=== PATIENT | female | born 1985 | race Caucasian/White ===

== ENCOUNTER → 2018-07-03 | Outpatient (REF) | payer OTHER, SELFPAY ==
[2018-07-03 18:41] LABS: BACTERIA, URINE AUTO NEGATIVE (NEGATIVE); RBC, URINE AUTO 3 /HPF (0-3); SQUAMOUS EPITHELIAL CELL UR AU 0 /HPF (0-6); WBC, URINE AUTO 1 /HPF (0-3)
[2018-07-03 22:05] LABS: CHLAMYDIA DNA AMPLIFICATION NEGATIVE (NEGATIVE); GC DNA AMPLIFICATION NEGATIVE (NEGATIVE)
== END ==
LOC: M SMT 17:13
PROVIDERS: ATTEND Specialist
DX: N30.90 Cystitis, unspecified without hematuria (principal)

== ENCOUNTER → 2019-06-29 | Outpatient (REF) | payer BC | LOC: M LAB REF 16:45 | PROVIDERS: ATTEND Family Medicine | DX: N76.0 Acute vaginitis (principal) ==

== ENCOUNTER → 2019-08-05 | Outpatient (CLI) | payer BC ==
[2019-08-05 13:54] LABS: BASO % 0.4 % (0.0-1.0); EOS # 0.2 10^3/uL (0.0-0.5); EOS % 2.1 % (0.0-3.0); HEMATOCRIT 36.6 % (36.0-47.0); HEMOGLOBIN 12.9 g/dl (12.0-15.5); LYMPH # 1.3 10^3/uL (1.5-5.0); LYMPH % 16.6 % (24.0-44.0); MEAN CORPUSCULAR HEMOGLOBIN 32.5 pg (27.0-33.0); MEAN CORPUSCULAR HGB CONC 35.2 g/dl (32.0-36.5); MEAN CORPUSCULAR VOLUME 92.2 fl (80.0-96.0); MONO # 0.5 10^3/uL (0.0-0.8); MONO % 5.6 % (0.0-5.0); NEUTROPHILS % 75.1 % (36.0-66.0); PLATELET COUNT, AUTOMATED 273 10^3/uL (150-450); RED BLOOD COUNT 3.97 10^6/uL (4.00-5.40)
[2019-08-05 14:26] LABS: THYROID STIMULATING HORMONE 0.802 uIU/ML (0.358-3.740)
[2019-08-05 14:38] LABS: RUBELLA IgG QUALITATIVE IMMUNE (IMMUNE)
[2019-08-05 15:07] LABS: HEPATITIS C VIRUS ABY INDEX 0.1 INDEX (<0.8)
[2019-08-05 15:08] LABS: HIV 1&2 SCREEN CENTAUR NEGATIVE (NEGATIVE)
[2019-08-05 15:39] LABS: CHLAMYDIA DNA AMPLIFICATION NEGATIVE (NEGATIVE); GC DNA AMPLIFICATION NEGATIVE (NEGATIVE)
[2019-08-06 08:06] LABS: HSV TYPE I IgG SPECIFIC 1.28 index (0.00-0.90); HSV TYPE II IgG SPECIFIC <0.91 index (0.00-0.90)
== END ==
LOC: M PLALAB 12:10
PROVIDERS: ATTEND Specialist
DX: Z34.01 Encounter for supervision of normal first pregnancy, first trimester (principal)

== ENCOUNTER → 2019-08-07 | Outpatient (CLI) | payer BC | LOC: M LABSMTC 13:51 | PROVIDERS: ATTEND Family Medicine | DX: Z11.59 Encounter for screening for other viral diseases (principal); Z20.828 Contact with and (suspected) exposure to other viral communicable diseases | CPT/HCPCS: 87486; 87581; 87633; 87798; U0002 ==

== ENCOUNTER → 2019-09-28 | Outpatient (CLI) | payer BC ==
--- NOTE | 2019-09-28 20:05 | REP ---
Clinical: Anatomical evaluation. Comparison: None . Findings: Examination demonstrates a single live intrauterine in transverse (head to maternal left) presentation. motion is identified by technologist. Placenta is noted anterior and grade zero without evidence for placenta previa or abruption. Amniotic fluid volume is normal. Cervix measures 3.4 cm in length and appears closed. No evidence for nuchal cord. Gestational age by current measurements 19 weeks 2 days with REGI 02/20/2020 . FHR equals 153 beats per minute. BPD 4.5 cm 19 weeks 5 days HC 16.4 cm 19 weeks 1 day AC 14.4 cm 19 weeks 5 days FL 3.1 cm 19 weeks 4 days HL 2.9 cm 19 weeks 2 days HC/AC ratio 1.14 Estimated weight 303 grams ( 56 percentile). Anatomical assessment demonstrates normal structures including cranium, choroid plexus, cavum, cerebellum/posterior fossa, lungs, diaphragm, stomach, cord insertion/three-vessel cord, kidneys/bladder, spine, and extremities. Limited evaluation of the facial features and heart/ventricular outflow tracts noted. Impression: Single live intrauterine in transverse lie demonstrating appropriate interval growth. Anatomical limitations as noted above may warrant reevaluation and follow-up.
== END ==
LOC: M WHC 09:33
PROVIDERS: ATTEND Specialist
DX: O32.2XX0 Maternal care for transverse and oblique lie, not applicable or unspecified (principal); Z36.89 Encounter for other specified antenatal screening; Z3A.19 19 weeks gestation of pregnancy

== ENCOUNTER → 2019-10-28 | Outpatient (CLI) | payer BC ==
--- NOTE | 2019-10-29 08:22 | REP ---
Clinical: Anatomical evaluation. Comparison: 09/28/2019 . Findings: Examination demonstrates a single live intrauterine in cephalic presentation. motion is identified by technologist. Placenta is noted anterior and grade I without evidence for placenta previa or abruption. Amniotic fluid volume is normal. Cervix measures 3.6 cm the in length and appears closed. No evidence for nuchal cord. Gestational age by LMP 22 weeks 5 days with REGI 02/26/2020 . Gestational age by current measurements 23 weeks 3-day with REGI 02/21/2020 . FHR equals 138 beats per minute. Estimated weight 617 grams ( 45th percentile). Anatomical assessment demonstrates normal structures including cranium, facial features, lungs, four-chamber heart/ventricular outflow tracts, diaphragm, stomach, cord insertion/three-vessel cord, kidneys/bladder. Impression: Single live intrauterine in cephalic presentation demonstrating appropriate interval growth. In conjunction with prior examination, anatomical assessment is complete and normal.
== END ==
LOC: M WHC 08:04
PROVIDERS: ATTEND Obstetrics & Gynecology
DX: O09.512 Supervision of elderly primigravida, second trimester (principal)

== ENCOUNTER → 2019-11-25 | Outpatient (REF) | payer BC ==
[~2019-11-25] MED LIST: IBUP80TA PO; MAPA500T2 PO; PRENTAB9 PO; TUMS500C PO
[2019-11-25 11:41] LABS: HEMATOCRIT 35.7 % (36.0-47.0); HEMOGLOBIN 11.9 g/dl (12.0-15.5); MEAN CORPUSCULAR HEMOGLOBIN 32.8 pg (27.0-33.0); MEAN CORPUSCULAR HGB CONC 33.3 g/dl (32.0-36.5); MEAN CORPUSCULAR VOLUME 98.3 fl (80.0-96.0); PLATELET COUNT, AUTOMATED 244 10^3/uL (150-450); RED BLOOD COUNT 3.63 10^6/uL (4.00-5.40); WHITE BLOOD COUNT 7.6 10^3/uL (4.0-10.0)
== END ==
LOC: M PLALAB 08:23
PROVIDERS: ATTEND Obstetrics & Gynecology
DX: Z36.89 Encounter for other specified antenatal screening (principal); O09.512 Supervision of elderly primigravida, second trimester; Z3A.00 Weeks of gestation of pregnancy not specified

== ENCOUNTER → 2019-12-08 | Outpatient (CLI) | payer BC | LOC: M LAB 06:03 | PROVIDERS: ATTEND Obstetrics & Gynecology | DX: R73.02 Impaired glucose tolerance (oral) (principal) ==

== ENCOUNTER → 2019-12-08 | Outpatient (CLI) | payer SELFPAY | LOC: M LABSMTC 14:25 | PROVIDERS: ATTEND Pediatrics | DX: Z20.828 Contact with and (suspected) exposure to other viral communicable diseases (principal); Z11.59 Encounter for screening for other viral diseases ==

== ENCOUNTER → 2019-12-22 | Outpatient (CLI) | payer BC | LOC: M LAB 08:50 | PROVIDERS: ATTEND Obstetrics & Gynecology | DX: Z34.80 Encounter for supervision of other normal pregnancy, unspecified trimester (principal); Z3A.00 Weeks of gestation of pregnancy not specified ==

== ENCOUNTER → 2020-02-03 | Outpatient (REF) | payer BC | LOC: M SFHCWAGY 13:09 | PROVIDERS: ATTEND Advanced Practice Midwife | DX: O09.513 Supervision of elderly primigravida, third trimester (principal); Z3A.00 Weeks of gestation of pregnancy not specified ==

== ENCOUNTER 2020-02-27 09:46 | Outpatient (CLI) | payer BC ==
[~2020-02-27] VITALS: Ht 167.6 cm; Wt 71.3 kg
[2020-02-27 10:07] VITALS: BP 112/76
--- NOTE | 2020-02-27 10:33 | IPNPDOC ---
Obstetrical Progress Note Date of Service Feb 27, 2020 Subjective c/o contractiosn for 3 days. Some are stronger than others. Small amount of bleeding. Objective 126/74 Assessment Variability: Moderate Accelerations: Positive Decelerations: None Heart Rate Tracing: Category I Tocometer Contractions: Yes Frequency: every 1-3 min. Duration: less than 60 seconds Strength: palpated as mild Sterile Vaginal Examination Dilation: 1cm Effacement (%): 80% Station: -2 Cervical Consistency: Medium Cervical Position: Posterior Postion/Presentation: Cephalic presentation Assessment and Plan Age: 35 : 1 Weeks & Days 40 05/26 Status: Reassuring Additional Comments Not in labor at this time. Plan to send home. labor precautions PORTER SEE MD Feb 27, 2020 10:33
[2020-02-27] MEDS ORDERED: MAPA500T2 PO (11:47)
[2020-02-27] MEDS ORDERED: PRENTAB9 PO (11:47)
[2020-02-27] MEDS ORDERED: TUMS500C PO (11:47)
== END 2020-02-27 10:40 | disposition home or self-care (01) ==
LOC: M LDO 09:46
PROVIDERS: ATTEND Specialist
DX: O47.1 False labor at or after 37 completed weeks of gestation (principal); Z3A.40 40 weeks gestation of pregnancy
CPT/HCPCS: 59025; G0378; G0463

== ENCOUNTER 2020-02-27 17:11 | Inpatient (IN) | payer BC ==
[2020-02-27] VITALS (8 sets, daily range): BP systolic 126–151; BP diastolic 76–83
[~2020-02-27] VITALS: Ht 167.6 cm; Wt 71.6 kg
[~2020-02-27 17:11] MED LIST changes: -IBUP80TA PO
--- NOTE | 2020-02-27 17:58 | HPEPDOC ---
Obstetrical History & Physical General Date of Admission Feb 27, 2020 at 17:42 History of Present Illness 35 yo G1 at 40 1/7 weeks presents with regular contractions of varying intensity for three days. The contractions have increased in intensity today. Small amount of vaginal bleeding. No LOF. 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 Family History Significant Family History: No pertinent family hx Social History Social history Physician at [employer] Marital Status: Single Psychosocial History: No pertinent psych hx * Smoker: non-smoker Alcohol: Denies Drugs: denies Abuse Violence Screening Have you been hit/kicked/slapp: No Have you been sexually assault: No Allergies Coded Allergies: metronidazole (Verified Allergy, Severe, ANAPHYLAXIS, 02/27/20) Sulfa (Sulfonamide Antibiotics) (Verified Allergy, Mild, RASH, 02/27/20) Medications Scheduled No.137/Iron/Folic Acd ( Vitamin Tablet) 1 Each Tablet, 1 TAB PO DAILY Scheduled PRN Acetaminophen (Mapap) 500 Mg Tablet, 1,000 MG PO for PAIN LEVEL 3-5 Calcium Carbonate (Tums) 200 Mg Tab.chew, 500 MG PO for HEARTBURN Physical Examination Physical Examination GENERAL: Alert and oriented times three. BREAST: . ABDOMEN: Gravid and non-tender to touch. FETUS: Is vertex (VTX) by sterile vaginal examination (SVE), fetus is vertex (VTX) by Keith. HEART RATE: Regular rate and rhythm. LUNGS: Clear to auscultation (CTA). EXTREMITIES: No edema. No clonus. Deep tendon reflexes (DTRs) + . Vital Signs/I&O 140/86 Pertinent Laboratoy Data Blood Type: A+ Hepatitis B: Negative Hepatitis C: Negative Rapid Plasma Reagin: Immune Rubella: Nonreactive Varicella: Nonreactive Chlamydia/Gonorrhea: Negative Group B Streptococcus: Negative Vaginal Examination Dilation: 1cm Effacement: 80% Station: -2 Cervical Consistency: Soft Cervical Position: Posterior Presentation: Cephalic presentation Assessment Variability: Moderate Accelerations: Positive Decelerations: None Tocometer Contractions: Yes Frequency: regular, every 1-3 min. Duration: less than 60 seconds Strength: palpated as moderate Assessment/Plan Assessment Pt is a 35-year-old (G)1 para (P)0 at 40 1/7 weeks by first trimester ultrasound and LMP Presents to Labor and Delivery (L&D) in early labor. Plan Admit and orient. Commercial Underwriter and consent. Group B Streptococcus (GBS) [negative]. Labs and intravenous (IV) per unit protocol. Counseled on Pitocin and induction of labor (IOL). Lactated Ringers (LR): Bolus mL, then at mL/hr. Anticipate [normal spontaneous delivery ()]. C-S as appropriate. PORTER SEE MD Feb 27, 2020 17:58
[2020-02-27 18:59] LABS: HEMATOCRIT 40.3 % (36.0-47.0); HEMOGLOBIN 13.8 g/dl (12.0-15.5); MEAN CORPUSCULAR HEMOGLOBIN 32.9 pg (27.0-33.0); MEAN CORPUSCULAR HGB CONC 34.2 g/dl (32.0-36.5); PLATELET COUNT, AUTOMATED 234 10^3/uL (150-450); WHITE BLOOD COUNT 9.3 10^3/uL (4.0-10.0)
[2020-02-27] MEDS ORDERED: LR 1,000 ML IV ONE (19:15)
[2020-02-27] MEDS ORDERED: OXYTOCIN DRIP 30 UNITS in IV 1 EA IV SCH (20:00)
[2020-02-27] MEDS: ONDANSETRON 4MG/2ML VIAL IV PRN (20:31)
[2020-02-27] MEDS ORDERED: ACETAMINOPHEN *IV* 1,000 MG in IV 1 EA IV ONE (20:45)
[2020-02-27] MEDS: LR 1,000 ML IV SCH (21:28)
[2020-02-28] VITALS (47 sets, daily range): BP systolic 88–153; BP diastolic 51–87
[2020-02-28] MEDS ORDERED: BUTORPHANOL 2 MG/ML INJ (J0595) IV ONE (00:15)
[2020-02-28] MEDS ORDERED: PROMETHAZINE INJ 25 MG/ML VIAL (J2550) IV ONE (00:15)
[2020-02-28] MEDS: ONDANSETRON 4MG/2ML VIAL IV PRN ×2 (00:23→04:58)
[2020-02-28] MEDS: LR 1,000 ML IV SCH ×2 (03:46→12:57)
[2020-02-28] MEDS ORDERED: ACETAMINOPHEN *IV* 1,000 MG in IV 1 EA IV ONE (05:00)
[2020-02-28] MEDS ORDERED: FENTANYL 2MCG/ML ROPIVACAINE 0.2% IN 0.9% NACL 100ML IVBAG As Ordered ONE (06:40)
[2020-02-28] MEDS ORDERED: diphenhydrAMINE 50MG/ML VIAL (J1200) IV PRN (07:15)
[2020-02-28] MEDS ORDERED: ePHEDrine SULFATE 25 MG/5 ML(5MG/ML) SYRINGE IV PRN (07:15)
[2020-02-28] MEDS ORDERED: FENTANYL/ROPIVACAINE/NACL BAG 100 ML EPIDURAL SCH (07:15)
[2020-02-28] MEDS ORDERED: LACTATED RINGER'S 1000 ML IV PRN (07:15)
[2020-02-28] MEDS ORDERED: ONDANSETRON 4MG/2ML VIAL IV PRN ×2 (07:15→15:45)
[2020-02-28] MEDS ORDERED: EPIDURAL COMMENT XX SCH (07:15)
[2020-02-28] MEDS ORDERED: EPIDURAL/PCA KEYS XX PRN (07:15)
[2020-02-28] MEDS ORDERED: REFRIGERATOR IV KEYS XX PRN (07:15)
[2020-02-28] MEDS ORDERED: NALOXONE INJ 0.4MG/1ML VIAL (J2310 PER 1MG) IV PRN (07:15)
--- NOTE | 2020-02-28 15:39 | DNPDOC ---
[facility] Delivery Note Delivery Note DATE OF DELIVERY: 02/28/2020 PREDELIVERY DIAGNOSIS: 40-1/7 weeks' gestation and labor. POST DELIVERY DIAGNOSIS: Delivered. PROCEDURE: Spontaneous vaginal delivery AND [employer] IN[employer] TROLLEY: Dr. Porter See MD ANESTHESIA: epidural. ESTIMATED BLOOD LOSS: 300 mL. FINDINGS: 7 pound 10 ounce female , Score 8/9 DELIVERY SUMMARY: Patient is a 35-year-old 1 now para 1 who was admitted to labor and delivery for early labor. She received Pitocin Augmentation. After a 35 minute second stage she had a spontaneous vaginal delivery of a 7 lb. 10 oz female . No nuchal cord. Shoulders delivered with ease. The infant was handed to the mother. The cord was clamped and cut. The placenta delivered spontaneously and appeared intact. The pt received IV Pitocin immediately after delivery of the placenta. A second degree perineal laceration was repaired with 2-O Chromic under local anesthesia in the usual fashion. Sponge and needle counts were correct. PORTER SEE MD Feb 28, 2020 15:39
[2020-02-28] MEDS ORDERED: MEASLES,MUMPS,RUBELLA VACCINE INJ (MMR-II) (90707) SC SCH (15:45)
[2020-02-28] MEDS ORDERED: IBUPROFEN 600MG TAB PO PRN (15:45)
[2020-02-28] MEDS ORDERED: DIBUCAINE 1% OINTMENT 30GM TOP PRN (15:45)
[2020-02-28] MEDS ORDERED: LIDOCAINE 1% MDV 20ML VIAL INFIL ONE (15:45)
[2020-02-28] MEDS ORDERED: ACETAMINOPHEN 500 MG TAB PO PRN (15:45)
[2020-02-28] MEDS ORDERED: DOCUSATE SODIUM 100 MG CAP PO PRN (15:45)
[2020-02-28] MEDS ORDERED: RHOGAM 300 MCG (1500 IU) INJ (J2790) IM SCH (15:45)
[2020-02-28] MEDS ORDERED: METHYLERGONOVINE MALEATE 0.2 MG TAB PO PRN (15:45)
[2020-02-28] MEDS ORDERED: OXYTOCIN DRIP 30 UNITS in IV 1 EA IV ONE (15:45)
[2020-02-28] MEDS ORDERED: ACETAMINOPHEN TAB 650MG DOSE (2X325MG) PO PRN (15:45)
[2020-02-28] MEDS: IBUPROFEN 800 MG TAB PO PRN (16:45)
[2020-02-29] MEDS: IBUPROFEN 800 MG TAB PO PRN (05:17)
[2020-02-29 06:17] VITALS: BP 120/69
[2020-02-29] MEDS ORDERED: DOCUSATE SODIUM 100 MG CAP PO PRN (09:00)
[2020-02-29] MEDS ORDERED: PRENATAL VITAMINS CHEWABLE TABLET PO SCH (09:00)
[2020-02-29] MEDS ORDERED: IBUP80TA PO (13:19)
== END 2020-02-29 18:05 | disposition home or self-care (01) | DRG 560 ==
LOC: M LDO 17:11 → M LDI 17:42 → M OBS 02-28 17:54
PROVIDERS: ADMIT Specialist; ATTEND Specialist
PROC: 10E0XZZ Delivery of Products of Conception, External Approach (ICD-10-PCS; principal; 2020-02-28)
PROC: 0KQM0ZZ Repair Perineum Muscle, Open Approach (ICD-10-PCS; 2020-02-28)
DX: O48.0 Post-term pregnancy (principal); O70.1 Second degree perineal laceration during delivery; Z3A.40 40 weeks gestation of pregnancy; Z37.0 Single live birth

== ENCOUNTER → 2020-05-16 | Outpatient (REF) ==
[~2020-05-16] MED LIST changes: +IBUP80TA PO
[2020-05-16 15:19] LABS: RSV AMPLIFICATION NEGATIVE (NEGATIVE)
== END ==
LOC: M EMP 12:54
PROVIDERS: ATTEND Family Medicine
DX: Z20.828 Contact with and (suspected) exposure to other viral communicable diseases (principal)

== ENCOUNTER → 2021-04-17 | Outpatient (CLI) | payer BC | LOC: M LAB 11:30 | PROVIDERS: ATTEND Physical Medicine & Rehabilitation | DX: Z34.91 Encounter for supervision of normal pregnancy, unspecified, first trimester (principal) ==

== ENCOUNTER → 2021-05-24 | Outpatient (REF) | LOC: M EMP 16:58 | PROVIDERS: ATTEND Family Medicine | DX: Z11.52 Encounter for screening for COVID-19 (principal) ==

== ENCOUNTER → 2021-08-23 | Outpatient (CLI) | payer BC | LOC: M WHC 10:32 | PROVIDERS: ATTEND Specialist | DX: Z36.3 Encounter for antenatal screening for malformations (principal); Z3A.20 20 weeks gestation of pregnancy ==

== ENCOUNTER → 2021-10-04 | Outpatient (REF) | payer BC | LOC: M PLALAB 11:32 | PROVIDERS: ATTEND Specialist | DX: Z34.82 Encounter for supervision of other normal pregnancy, second trimester (principal) ==

== ENCOUNTER → 2021-10-04 | Outpatient (CLI) | payer BC ==
[2021-10-04 17:26] LABS: HEMATOCRIT 38.5 % (36.0-47.0); HEMOGLOBIN 12.9 g/dl (12.0-15.5); MEAN CORPUSCULAR HEMOGLOBIN 31.6 pg (27.0-33.0); MEAN CORPUSCULAR HGB CONC 33.5 g/dl (32.0-36.5); MEAN CORPUSCULAR VOLUME 94.4 fl (80.0-96.0); PLATELET COUNT, AUTOMATED 285 10^3/uL (150-450); RED BLOOD COUNT 4.08 10^6/uL (4.00-5.40); WHITE BLOOD COUNT 8.3 10^3/uL (4.0-10.0)
[2021-10-04 18:57] LABS: GC DNA AMPLIFICATION NEGATIVE (NEGATIVE)
== END ==
LOC: M PLALAB 14:15
PROVIDERS: ATTEND Specialist
DX: Z34.82 Encounter for supervision of other normal pregnancy, second trimester (principal); Z3A.00 Weeks of gestation of pregnancy not specified

== ENCOUNTER → 2021-10-05 | Outpatient (CLI) | payer BC | LOC: M PLALAB 12:07 | PROVIDERS: ATTEND Specialist | DX: Z34.82 Encounter for supervision of other normal pregnancy, second trimester (principal); Z3A.00 Weeks of gestation of pregnancy not specified ==

== ENCOUNTER → 2021-11-15 | Outpatient (CLI) | payer BC | LOC: M LAB 08:28 | PROVIDERS: ATTEND Specialist | DX: Z34.82 Encounter for supervision of other normal pregnancy, second trimester (principal) ==

== ENCOUNTER → 2021-12-07 | Outpatient (CLI) | payer BC | LOC: M WHC 08:00 | PROVIDERS: ATTEND Obstetrics & Gynecology | DX: Z36.2 Encounter for other antenatal screening follow-up (principal); O26.849 Uterine size-date discrepancy, unspecified trimester; Z3A.35 35 weeks gestation of pregnancy ==

== ENCOUNTER → 2021-12-12 | Outpatient (CLI) | payer BC | LOC: M LAB 08:29 | PROVIDERS: ATTEND Specialist | DX: Z34.83 Encounter for supervision of other normal pregnancy, third trimester (principal) ==

== ENCOUNTER → 2021-12-20 | Outpatient (REF) | payer BC | LOC: M PLALAB 08:19 | PROVIDERS: ATTEND Obstetrics & Gynecology | DX: Z34.80 Encounter for supervision of other normal pregnancy, unspecified trimester (principal) ==

== ENCOUNTER 2022-01-10 23:55 | Outpatient (CLI) | payer BC ==
[~2022-01-10] VITALS: Ht 167.6 cm; Wt 74.6 kg
[2022-01-11 00:15] VITALS: BP 121/79
[2022-01-11] MEDS ORDERED: CLAR10CA3 PO (00:16)
[2022-01-11] MEDS ORDERED: B COCAP4 PO (00:16)
[2022-01-11] MEDS ORDERED: GALZ50CA PO (00:16)
[2022-01-12] MEDS ORDERED: ACET-683 PO (17:52)
[2022-01-12] MEDS ORDERED: IBUP80TA PO (17:52)
== END 2022-01-11 01:00 | disposition home or self-care (01) ==
LOC: M LDO 23:55
PROVIDERS: ATTEND Advanced Practice Midwife
DX: O60.03 Preterm labor without delivery, third trimester (principal); O26.893 Other specified pregnancy related conditions, third trimester; N89.8 Other specified noninflammatory disorders of vagina; O26.853 Spotting complicating pregnancy, third trimester; Z3A.39 39 weeks gestation of pregnancy; O09.513 Supervision of elderly primigravida, third trimester; Z80.3 Family history of malignant neoplasm of breast; Z88.1 Allergy status to other antibiotic agents; Z88.2 Allergy status to sulfonamides
CPT/HCPCS: 59025; G0463

== ENCOUNTER 2022-01-11 11:24 | Inpatient (IN) | payer BC ==
[~2022-01-11] VITALS: Ht 167.6 cm; Wt 73.7 kg
[2022-01-11] VITALS (33 sets, daily range): BP systolic 95–147; BP diastolic 57–90
[~2022-01-11 11:24] MED LIST changes: +B COCAP4 PO; +CLAR10CA3 PO; +GALZ50CA PO
[2022-01-11] MEDS ORDERED: HOME MED LIST COMPLETE! XX SCH (11:40)
[2022-01-11] MEDS ORDERED: LACTATED RINGER'S 1000 ML IV STA (12:03)
[2022-01-11] MEDS ORDERED: LR 1,000 ML IV SCH (12:05)
[2022-01-11 12:52] LABS: HEMATOCRIT 38.9 % (36.0-47.0); HEMOGLOBIN 13.5 g/dl (12.0-15.5); MEAN CORPUSCULAR HEMOGLOBIN 32.6 pg (27.0-33.0); MEAN CORPUSCULAR HGB CONC 34.7 g/dl (32.0-36.5); PLATELET COUNT, AUTOMATED 251 10^3/uL (150-450); RED BLOOD COUNT 4.14 10^6/uL (4.00-5.40); WHITE BLOOD COUNT 12.7 10^3/uL (4.0-10.0)
[2022-01-11] MEDS ORDERED: ONDANSETRON 4MG 2ML VIAL IV PRN (13:20)
[2022-01-11] MEDS ORDERED: diphenhydrAMINE 50MG/ML VIAL (J1200) IV PRN (13:20)
[2022-01-11] MEDS ORDERED: EPIDURAL/PCA KEYS XX PRN (13:20)
[2022-01-11] MEDS ORDERED: FENTANYL/ROPIVACAINE/NACL BAG 100 ML EPIDURAL SCH (13:20)
[2022-01-11] MEDS ORDERED: LR 500 ML IV PRN (13:20)
[2022-01-11] MEDS ORDERED: ePHEDrine SULFATE 25 MG/5 ML(5MG/ML) SYRINGE IVP PRN (13:20)
[2022-01-11] MEDS ORDERED: NALOXONE INJ 0.4MG/1ML VIAL (J2310 PER 1MG) IV PRN (13:20)
[2022-01-11] MEDS ORDERED: REFLB XX ONE (13:22)
[2022-01-11 17:44] LABS: HIV 1&2 SCREEN CENTAUR NEGATIVE (NEGATIVE)
[2022-01-11] MEDS ORDERED: ACETAMINOPHEN 500 MG TAB PO ONE (19:40)
[2022-01-11] MEDS ORDERED: OXYTOCIN 30 UNITS IN 0.9% NaCl 500ML IV BAG (J2590) As Ordered ONE (19:41)
[2022-01-11] MEDS ORDERED: LIDOCAINE 1% MDV 20ML VIAL INFIL PRN (19:55)
[2022-01-11] MEDS ORDERED: OXYTOCIN DRIP 30 UNITS in IV 1 EA IV PRN (19:55)
[2022-01-11] MEDS ORDERED: IBUPROFEN 800 MG TAB PO PRN (21:05)
[2022-01-11] MEDS ORDERED: METHYLERGONOVINE MALEATE 0.2 MG TAB PO PRN (21:05)
[2022-01-11] MEDS ORDERED: RHOGAM 300 MCG (1500 IU) INJ (J2790) IM SCH (21:05)
[2022-01-11] MEDS ORDERED: ACETAMINOPHEN TAB 650MG DOSE (2X325MG) PO PRN (21:05)
[2022-01-11] MEDS ORDERED: DIBUCAINE 1% OINTMENT 30GM TOP PRN (21:05)
[2022-01-11] MEDS ORDERED: DOCUSATE SODIUM 100MG CAPSULE PO PRN (21:05)
[2022-01-11] MEDS: IBUPROFEN 600MG TAB PO PRN (23:31)
[2022-01-12] MEDS: ACETAMINOPHEN 500 MG TAB PO PRN ×3 (03:32→17:28)
[2022-01-12 05:43] VITALS: BP 97/52
[2022-01-12] MEDS: IBUPROFEN 600MG TAB PO PRN ×2 (08:07→13:37)
[2022-01-12] MEDS ORDERED: PRENATAL VITAMINS CHEWABLE TABLET PO SCH (09:00)
[2022-01-12 09:15] VITALS: BP 97/52
[2022-01-12] MEDS ORDERED: IBUP80TA PO (17:52)
[2022-01-12] MEDS ORDERED: ACET-683 PO (17:52)
[2022-01-12 18:09] VITALS: BP 125/65
[2022-01-13] MEDS ORDERED: MEASLES,MUMPS,RUBELLA VACCINE INJ (MMR-II) (90707) SC.IMMUN ONE (09:00)
== END 2022-01-12 21:46 | disposition home or self-care (01) | DRG 560 ==
LOC: M LDO 11:24 → M LDI 11:57 → M OBS 23:00
PROVIDERS: ADMIT Specialist; ATTEND Specialist
PROC: 10E0XZZ Delivery of Products of Conception, External Approach (ICD-10-PCS; principal; 2022-01-11)
PROC: 0KQM0ZZ Repair Perineum Muscle, Open Approach (ICD-10-PCS; 2022-01-11)
DX: O70.1 Second degree perineal laceration during delivery (principal); Z37.0 Single live birth; Z3A.39 39 weeks gestation of pregnancy

== ENCOUNTER → 2022-04-26 | Outpatient (CLI) | payer BC ==
[~2022-04-26] MED LIST changes: +ACET-683 PO
[2022-04-26 17:25] LABS: HEMOGLOBIN A1c 4.9 % (4.0-6.0)
== END ==
LOC: M LAB 13:37
PROVIDERS: ATTEND Specialist
DX: R73.02 Impaired glucose tolerance (oral) (principal)

== ENCOUNTER → 2022-06-26 | Outpatient (CLI) | payer BC ==
[2022-06-26 15:16] LABS: BASO # 0.1 10^3/uL (0.0-0.2); BASO % 1.2 % (0.0-1.0); EOS # 0.3 10^3/uL (0.0-0.5); EOS % 4.4 % (0.0-3.0); HEMATOCRIT 43.6 % (36.0-47.0); HEMOGLOBIN 14.4 g/dl (12.0-15.5); LYMPH # 1.7 10^3/uL (1.5-5.0); LYMPH % 30.2 % (24.0-44.0); MEAN CORPUSCULAR HEMOGLOBIN 31.1 pg (27.0-33.0); MEAN CORPUSCULAR VOLUME 94.2 fl (80.0-96.0); MONO # 0.4 10^3/uL (0.0-0.8); MONO % 7.2 % (2.0-8.0); NEUTROPHILS # 3.3 10^3/uL (1.5-8.5); NEUTROPHILS % 56.8 % (36.0-66.0); PLATELET COUNT, AUTOMATED 377 10^3/uL (150-450); RED BLOOD COUNT 4.63 10^6/uL (4.00-5.40); WHITE BLOOD COUNT 5.7 10^3/uL (4.0-10.0)
[2022-06-26 15:38] LABS: ALBUMIN 3.9 G/DL (3.2-5.2); ALKALINE PHOSPHATASE 58 U/L (46-116); ALT/SGPT 25 U/L (7.0-40); AST/SGOT 22 U/L (<34); BILIRUBIN,TOTAL 0.5 MG/DL (0.3-1.2); BLOOD UREA NITROGEN 12 MG/DL (9-23); CALCIUM LEVEL 8.8 MG/DL (8.5-10.1); CARBON DIOXIDE LEVEL 31 MMOL/L (20-31); CHLORIDE LEVEL 102 MMOL/L (98-107); CREATININE FOR GFR 0.73 MG/DL (0.55-1.30); GLOMERULAR FILTRATION RATE > 60.0 (>60); GLUCOSE, FASTING 80 MG/DL (60-100); SODIUM LEVEL 139 MMOL/L (136-145); TOTAL PROTEIN 6.4 G/DL (5.7-8.2)
[2022-06-26 15:43] LABS: HCG, SERUM QUALITATIVE NEGATIVE (NEGATIVE)
== END ==
LOC: M PLALAB 09:57
PROVIDERS: ATTEND Internal Medicine Infectious Disease
DX: B35.4 Tinea corporis (principal)

== ENCOUNTER → 2022-10-03 | Outpatient (CLI) | payer BC ==
[2022-10-03 17:48] LABS: HEMATOCRIT 38.3 % (36.0-47.0); MEAN CORPUSCULAR HEMOGLOBIN 30.7 pg (27.0-33.0); MEAN CORPUSCULAR HGB CONC 33.9 g/dl (32.0-36.5); MEAN CORPUSCULAR VOLUME 90.5 fl (80.0-96.0); PLATELET COUNT, AUTOMATED 299 10^3/uL (150-450); RED BLOOD COUNT 4.23 10^6/uL (4.00-5.40); WHITE BLOOD COUNT 9.3 10^3/uL (4.0-10.0)
[2022-10-03 18:29] LABS: HIV 1&2 SCREEN NEGATIVE (NEGATIVE)
[2022-10-03 18:57] LABS: GC DNA AMPLIFICATION NEGATIVE (NEGATIVE)
== END ==
LOC: M PLALAB 16:13
PROVIDERS: ATTEND Advanced Practice Midwife
DX: Z34.81 Encounter for supervision of other normal pregnancy, first trimester (principal)

== ENCOUNTER → 2022-11-29 | Outpatient (CLI) | payer BC | LOC: M WHC 14:03 | PROVIDERS: ATTEND Obstetrics & Gynecology | DX: Z34.82 Encounter for supervision of other normal pregnancy, second trimester (principal) ==

== ENCOUNTER → 2022-12-26 | Outpatient (CLI) | payer BC ==
[2022-12-26 14:00] LABS: HEMATOCRIT 35.7 % (36.0-47.0); HEMOGLOBIN 12.2 g/dl (12.0-15.5); MEAN CORPUSCULAR HEMOGLOBIN 31.9 pg (27.0-33.0); MEAN CORPUSCULAR HGB CONC 34.2 g/dl (32.0-36.5); MEAN CORPUSCULAR VOLUME 93.2 fl (80.0-96.0); PLATELET COUNT, AUTOMATED 276 10^3/uL (150-450); RED BLOOD COUNT 3.83 10^6/uL (4.00-5.40); WHITE BLOOD COUNT 8.2 10^3/uL (4.0-10.0)
[2022-12-26 15:43] LABS: GC DNA AMPLIFICATION NEGATIVE (NEGATIVE)
== END ==
LOC: M PLALAB 10:07
PROVIDERS: ATTEND Obstetrics & Gynecology
DX: Z34.82 Encounter for supervision of other normal pregnancy, second trimester (principal)